=== PATIENT | male | born 1975 | race Two or more races ===

== ENCOUNTER 2023-06-17 07:51 | Outpatient (AMB) | payer OTHER, SELFPAY ==
[2023-06-17 08:10] VITALS: BMI 34.4
--- NOTE | 2023-06-17 08:10 | MHC.OFFVIS ---
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 The patient describes his pain as sharp in nature. Most of the pain is along the medial aspect of his knee. States that his symptoms have gotten worse over the last year in spite of continued non operative treatments. He has done physical therapy exercises which aggravated his pain. Has also tried Tylenol and anti-inflammatory medicines which gave him minimal relief. Patient states that his knee will give out several times per day. He has worn a brace which gives him only mild Allergies No Known Allergies Allergy (Verified 06/17/23 08:12) Medication List - Last Reconciled 06/17/23 by Claude Bell MD No Known Home Meds [facility] Social History (Updated 06/17/23 @ 08:16 by Stacy Stewart CMA) Patient Tobacco Use Status: Never used Tobacco Current occupational status: employed Current occupation: [employer] Physical Exam Vital Signs: BMI result Body Mass Index 34.4 Const Other: Well-nourished well-developed very friendly male awake alert and oriented x3 in no acute distress Extrem Other: Bilateral lower extremity examination shows good capillary refill, no skin lesions noted, normal sensation light touch Left knee examination shows a mild effusion, minimal crepitus with range of motion, tenderness along his medial joint line, positive Jefferson's test, no instability Results Reviewed Results Reviewed: MRI of the patient's left knee which he brings with him today on a disc shows a tear of the posterior horn of the medial meniscus as well as mild to moderate diffuse degenerative changes, no acute bony abnormalities Assessment & Plan Assessment & Plan (1) Left knee pain: Code(s): M25.562 - Pain in left knee Plan Mr. Vasquez presents with left knee pain and mechanical symptoms due to early degenerative joint disease as well as a tear of his medial meniscus. I had a lengthy discussion with the patient regarding the treatment options. The risks and benefits of left knee arthroscopic surgery were discussed at length with the patient. The patient does understand that he might not get 100% relief of his symptoms depending on the severity of his degenerative changes. Because of the large tear in the medial meniscus and his mechanical symptoms I do feel that he would benefit from arthroscopic surgery. At this point the patient's symptoms are tolerable to him. He will continue with his activity modifications. If his symptoms do worsen in the future we will further discuss the risks and benefits of arthroscopic surgery. That surgery would most likely involve left knee diagnostic arthroscopy with partial medial meniscectomy. The patient will follow-up on an as-needed basis. Feel free to call me at any time should questions regarding his orthopedic management arise. Thank you very much for asking me to see this very friendly gentleman. I spent 22 minutes in reviewing the patient's records and imaging studies, seeing the patient and documenting in the medical record. Orders: Orders XR knee LT 3V Today M25.562 - Pain in left knee Coding Level of Care Code New Pt Level 2 (72787) Diagnoses Left knee pain M25.562
== END 2023-06-17 08:28 | disposition home or self-care (01) ==
PROVIDERS: PCP Physician Assistant Medical; Visit Provider Orthopaedic Surgery
DX: M25.562 Pain in left knee (principal)
CPT/HCPCS: 99202

== ENCOUNTER 2023-06-17 09:32 | Outpatient (REF) | payer OTHER, SELFPAY ==
--- NOTE | ~2023-06-17 | XR_ITS ---
EXAMINATION: XR KNEE, LEFT CLINICAL INFORMATION: Pain in left knee COMPARISON: None available. TECHNIQUE: Four views of the left knee. FINDINGS: No fracture. Small joint effusion. There is mild narrowing of the medial joint compartment. Question of 3 mm loose body within the joint seen on the lateral view. XR/XR knee LT 3V IMPRESSION: 1. Mild osteoarthritis. 2. Question of 3 mm loose body within the joint seen on the lateral view.
== END 2023-06-17 09:33 | disposition home or self-care (01) ==
LOC: HO.HOSX 09:32
PROVIDERS: Visit Provider Orthopaedic Surgery
DX: M25.562 Pain in left knee (principal)
CPT/HCPCS: 73562; 99202

== ENCOUNTER 2023-09-02 08:38 | Outpatient (AMB) | payer OTHER, SELFPAY ==
--- NOTE | 2023-09-02 08:40 | A.OFFVIS_ITS ---
Vital Signs 09/02/23 08:42 Height 5 ft 10 in Intake Visit Reasons: New Prob - Right Knee Pain, Left knee pain Intake Note: George is a 48 year old male who presents with complaints of progressively worsening bilateral knee pains and giving way. The patient describes his pains as sharp and severe in nature. He has done physical therapy exercises which aggravated his pain. He states that both of his knees will give out several times per day. Has had injections in the past which gave him minimal relief. He has failed the last 6 weeks of conservative treatment. His symptoms have gotten worse over the last year in spite of continued non operative treatments. Has tried Tylenol and anti-inflammatory medicines which gave him minimal relief. The patient states that both of his knees will give out several times per day. Allergies No Known Allergies Allergy (Verified 09/02/23 08:47) Medication List - Last Reconciled 09/02/23 by Claude Bell MD No Known Home Meds [facility] Social History Patient Tobacco Use Status: Never used Tobacco Current occupational status: employed Current occupation: [employer] Physical Exam Const Other: Well-nourished well-developed very friendly male awake alert and oriented x3 in no acute distress Extrem Other: Bilateral lower extremity examination shows good capillary refill, no skin les ions noted, normal sensation light touch Right knee examination shows a minimal effusion, minimal crepitus with range of motion, tenderness along his medial joint line, positive Jefferson's test, no in stability Left knee examination shows a minimal effusion, minimal crepitus with range of motion, tenderness along his medial joint line, positive Jefferson's test, no instability Results Reviewed Results Reviewed: Standing full weight-bearing x-rays of the patient's left knee show mild diffuse joint space narrowing, no acute bony abnormalities MRI of the patient's left knee shows mild degenerative changes as well as a tear of the medial meniscus Assessment & Plan Assessment & Plan (1) Left knee pain: Code(s): M25.562 - Pain in left knee Category: Medical (2) Right knee pain: Code(s): M25.561 - Pain in right knee Category: Medical Plan Mr. Vasquez presents with bilateral knee pains and mechanical symptoms most likely due to tearing of his medial menisci. Thus, I will send the patient for an MRI of his right knee for further evaluation. Appears to be failing continued non operative treatments for his left knee. The risks and benefits of left knee arthroscopic surgery were discussed at length with the patient. The patient is interested in proceeding with surgery later this year. He will contact my office to pick a surgery date. I will see him back after his right knee MRI to discuss the findings and treatment options. Left knee surgery will most likely involve left knee arthroscopic partial medial meniscectomy. Feel free to call me at any time should questions regarding his orthopedic management arise. I spent 20 minutes in reviewing the patient's records and imaging studies, seeing the patient and documenting in the medical record. Orders: Orders MR knee RT wo con Today M25.561 - Pain in right knee Coding Level of Care Code Est Pt Level 3 (02332) Diagnoses Left knee pain M25.562 Right knee pain M25.561
== END 2023-09-02 09:02 | disposition home or self-care (01) ==
PROVIDERS: PCP Physician Assistant Medical; Visit Provider Orthopaedic Surgery
DX: M25.562 Pain in left knee (principal); M25.561 Pain in right knee
CPT/HCPCS: 99213

== ENCOUNTER → 2023-09-02 08:38 | Outpatient (BNVA) | payer OTHER, SELFPAY | PROVIDERS: PCP Physician Assistant Medical; Visit Provider Orthopaedic Surgery | DX: M25.561 Pain in right knee (principal); M25.562 Pain in left knee | CPT/HCPCS: 99212 ==

== ENCOUNTER 2023-10-08 09:24 | Outpatient (REF) | payer OTHER, SELFPAY ==
--- NOTE | ~2023-10-08 | MR_ITS ---
EXAMINATION: MR KNEE WITHOUT CONTRAST, RIGHT CLINICAL INFORMATION: Left knee pain. COMPARISON: Radiographs 06/17/2023. TECHNIQUE: MRI of the knee without contrast was performed using routine sequences on a high-field scanner. FINDINGS: MENISCI: Medial Meniscus: Complex, near complete tear at the root of the posterior horn. The meniscal body is slightly extruded. Intrasubstance degenerative signal at the junction of the body and posterior horn. Possible small longitudinal tear at the root of the anterior horn with a 1.2 cm lobulated and septated parameniscal cysts or small ganglion. Lateral Meniscus: Intact LIGAMENTS: Cruciate: Intact Collateral: Intact EXTENSOR MECHANISM: Intact ARTICULAR CARTILAGE/BONE: Patellofemoral Compartment: Cartilage thinning and surface irregularity with subchondral edema of the central patella superiorly. Medial Compartment: Mild cartilage thinning and surface irregularity throughout the weightbearing aspect with peripheral subchondral marrow edema of the tibia medially. Lateral Compartment: Normal JOINT FLUID AND BURSAE: Moderate joint effusion with mild synovitis. Fluid and synovitis extends along the popliteus tendon sheath. MR/MR knee RT wo con IMPRESSION: 1. Complex, near complete tear at the root of the posterior horn of the medial meniscus with mild extrusion of the meniscal body. 2. Possible small longitudinal tear at the root of the anterior horn with a 1.2 cm lobulated and septated parameniscal cyst or ganglion. 3. Mild patellofemoral/medial compartment osteoarthritis. Moderate joint effusion.
== END 2023-10-08 09:25 | disposition home or self-care (01) ==
LOC: HO.MRI 09:24
PROVIDERS: PCP Physician Assistant Medical; Visit Provider Orthopaedic Surgery
DX: M25.561 Pain in right knee (principal)
CPT/HCPCS: 73721

== ENCOUNTER 2023-10-12 08:04 | Day surgery (SDC) | payer OTHER, SELFPAY ==
[2023-10-07 16:18] VITALS: BMI 34.4
[2023-10-12 08:49] VITALS: BP 140/88; PULSE 64; RESP 16; TEMP 36.9; O2SAT 98
[2023-10-12] MEDS: Lactated Ringers 1,000 ML 100 ML IVCONT (08:50)
--- NOTE | 2023-10-12 09:35 | P.CONAN_ITS ---
HPI - Anesthesia Eval Consult details Narrative: for knee arthroscopy PMFSH Active Problems Active Problems: All Active Problems Right knee pain (Acute) Left knee pain (Acute) Past Medical History Medical History No pertinent past medical history Family History Family history of problems with anesthesia: No Surgical History Surgical History No pertinent past surgical history History of Problems with Anesthesia: No Social History Social History Household Members: Family Housing: House Are you a primary long term acute care registered nurse to a significant other at home: No Do you presently have visiting nurse or other home services: No Patient Tobacco Use Status: Never used Tobacco Use of substances other than those prescribed or required for medical reasons: No Have you been hit, kicked, punched, or otherwise hurt by someone within the past year? If so, by whom?: No Are you DNR?: No Advance Directives: No Advance Directives Information Provided: Yes Advance Directives on File: No Recently lost weight without trying: No Nutrition Risks: No Nutritional Risk Poor oral hygiene: No Current occupational status: employed Current occupation: [employer] Allergies Allergy/AdvReac Type Severity Reaction Status Date / Time No Known Allergies Allergy Verified 10/12/23 08:35 Active Medications: Current Medications Lactated Ringer's (Lr) 1,000 mls @ 100 mls/hr IVCONT .Q10H MARIANNA Last Admin: 10/12/23 08:50 Dose: 100 mls/hr Home Medications ?Medication ?Instructions ?Recorded ?Confirmed ?Last Taken ?Type No Known Home Meds 06/17/23 10/07/23 Unknown History Exam Height,Weight and Vital Signs: Height 5 ft 10 in Weight 108.862 kg Last Vital Signs Temp 98.4 F 10/12/23 08:49 Pulse 64 10/12/23 08:49 Resp 16 10/12/23 08:49 BP 140/88 H 10/12/23 08:49 Pulse Ox 98 10/12/23 08:49 O2 Del Method Room Air 10/12/23 08:49 Airway Mallampati Class: II TM Dist: >3cm Neck ROM: Full Heart: rrr Lungs: cta Assessment and Plan Assessment Anesthesia Assessment: Anesthesia Plan Discussed and Chart Reviewed Final Anesthetic Review Family History of Problems with Anesthesia: No History of Problems with Anesthesia: No NPO: Yes ASA Class: II (obesity ) Final Preanesthetic Review: No Changes in Pt Med Stat, Meds/Allgs Chart Reviewed, Consent Obtained/Reviewed and Anes Risks/Benef Reviewed Patient Risk: Intermediate Procedure Risk: Low Anesthetic Plan Anesthetic Plan: GA Disposition: Standard PACU
[2023-10-12 10:44] VITALS: BMI 34.6
--- NOTE | 2023-10-12 11:35 | PC.NURSE ---
24hr update documented on paper
[2023-10-12 12:44] VITALS: BP 126/81; PULSE 58; RESP 16; TEMP 36.1; O2SAT 100
[2023-10-12 12:49] VITALS: BP 121/79; PULSE 62; RESP 18; O2SAT 99
[2023-10-12 12:54] VITALS: BP 119/82; PULSE 62; RESP 18; O2SAT 99
--- NOTE | 2023-10-12 12:58 | PM.OP ---
Brief Operative Note Date of Service: 10/12/23 Pre-op diagnosis: Left knee medial meniscus tear, left knee degenerative joint disease Post-op diagnosis: same Procedure: Left knee diagnostic arthroscopy with left knee arthroscopic partial medial meniscectomy; left knee arthroscopic chondroplasty of the undersurface of the patella, trochlear groove, and the medial femoral condyle Implants: None Surgeon: Claude Bell MD Anesthesia: GLMA Was an Subcontracts Manager used for this Procedure?: No Estimated blood loss (mL): 10 Pathology: none sent Condition: stable Disposition: PACU
[2023-10-12 12:59] VITALS: BP 121/74; PULSE 65; RESP 18; O2SAT 97
--- NOTE | 2023-10-12 13:00 | W.PM.OPN ---
Operative Note Operative Note Date of Service: 10/12/23 Narrative: After the patient was identified as George Vasquez and his left knee was initialed by myself they were brought to the operating room where general anesthesia was induced by the anesthesiologist in routine fashion. The patient was given 2 g of IV Ancef preoperatively for infection prophylaxis. The patient's left lower extremity was prepped and draped in sterile fashion. A formal time-out was completed. Marcaine was injected into the planned incision sites as well as the patient's left knee joint. A #11 scalpel blade was used to make an anterolateral portal 1 cm proximal to the joint line and 1 cm lateral to the patellar tendon. Blunt trocar technique was used to enter the suprapatellar pouch with the knee in extension. Diagnostic arthroscopy showed multiple bands of thickened plica which would be excised at the end of the procedure. There were no loose bodies or abnormalities found in either the medial or lateral gutters. The articular surface of the patella showed diffuse grades 1 and 2 degenerative changes. The trochlear groove articular surface showed diffuse grades 1 and 2 degenerative changes. The patient's knee was flexed to 45 degrees and a valgus force was placed upon it. The medial compartment was entered. An anteromedial portal was made 1 cm proximal to the joint line and 1 cm medial to the patellar tendon. Probing of the medial meniscus showed a radial tear of the posterior horn. A partial medial meniscectomy was performed using the arthroscopic shaver. Following the partial meniscectomy the remainder of the meniscus tissue was stable. There were diffuse grades 2 and 3 degenerative changes of the medial femoral condyle as well as grades 2 and 3 degenerative changes of the medial tibial plateau. The articular surface of the medial femoral condyle was then made smooth using the arthroscopic shaver. The articular surface of the medial tibial plateau was already smooth so no chondroplasty was indicated. The patient's knee was placed into a neutral position. There was no injury to the anterior cruciate ligament. The patient's knee was then placed in the figure of 4 position and the lateral compartment was entered. There was no evidence of lateral meniscus tearing. There were minimal degenerative changes of the lateral femoral condyle and lateral tibial plateau. The patient's knee was once again brought into extension and the suprapatellar pouch was entered. The arthroscopic shaver and the ArthroCare Wand were used to excise the thickened bands of plica. The undersurface of the patella and the trochlear groove articular surface were made smooth using the arthroscopic shaver. The knee joint was irrigated and then drained. All arthroscopic instruments were removed. The 2 portals were closed with 3-0 nylon interrupted suture. The knee joint was injected with Marcaine. Dry sterile dressing and Fred bandages were placed over the patient's knee. The patient was awoken and extubated in the operating room. The patient was transferred to the recovery room in stable condition.
[2023-10-12 13:14] VITALS: BP 128/74; PULSE 63; RESP 18; TEMP 36.4; O2SAT 96
== END 2023-10-12 13:55 | disposition home or self-care (01) ==
PROVIDERS: PCP Physician Assistant Medical; Visit Provider Orthopaedic Surgery
PROC: (CPT 29870; principal; 2023-10-12 10:30)
DX: S83.242A Other tear of medial meniscus, current injury, left knee, initial encounter (principal); M17.12 Unilateral primary osteoarthritis, left knee; M67.52 Plica syndrome, left knee; X58.XXXA Exposure to other specified factors, initial encounter; Y93.9 Activity, unspecified; Y92.9 Unspecified place or not applicable; Y99.8 Other external cause status
CPT/HCPCS: 29881; J0131; J0171; J0690; J1100; J1885; J2405; J2704; J2795; J3010

== ENCOUNTER → 2023-10-12 08:04 | Outpatient (BNV) | payer OTHER, SELFPAY | PROVIDERS: PCP Physician Assistant Medical; Visit Provider Orthopaedic Surgery | DX: S83.242A Other tear of medial meniscus, current injury, left knee, initial encounter (principal) | CPT/HCPCS: 29881 ==

== ENCOUNTER 2023-10-27 10:35 | Outpatient (AMB) | payer OTHER, SELFPAY ==
--- NOTE | 2023-10-27 10:38 | MHC.OFFVIS ---
Intake Visit Reasons: PO LT knee 10/12/23 Intake Note: George is a 48 year old male who presents today for a post operative visit s/p left knee on 10/12/23 . He reports mild intermittent discomfort in his left knee. He denies any fevers or chills. He continues with his range of motion exercises. He is no longer taking narcotics for his discomfort. l Allergies No Known Allergies Allergy (Verified 10/27/23 10:41) [facility] Medical History No pertinent past medical history Surgical History No pertinent past surgical history Social History Household Members: Family Housing: House Are you a primary care advocate to a significant other at home: No Do you presently have visiting nurse or other home services: No Patient Tobacco Use Status: Never used Tobacco Current occupational status: employed Current occupation: [employer] Physical Exam Extrem Other: Left knee examination shows that the surgical incisions are healing well, minimal discomfort with range of motion, no crepitus with range of motion Assessment & Plan Assessment & Plan (1) Left knee pain: Code(s): M25.562 - Pain in left knee Category: Medical Plan Mr. Vasquez is doing well after undergoing left knee arthroscopic surgery on 10/12/2023. His sutures were removed and Steri-Strips placed over his incisions. He will gradually progress to activities as tolerated. He will contact me prior to his follow-up appointment in 2 months should any questions or concerns arise. Feel free to call me at any time should questions regarding his orthopedic management arise. Coding Level of Care Code Global (29052) Diagnoses Left knee pain M25.562
== END 2023-10-27 10:57 | disposition home or self-care (01) ==
PROVIDERS: PCP Physician Assistant Medical; Visit Provider Orthopaedic Surgery
DX: M25.562 Pain in left knee (principal)
CPT/HCPCS: 99024

== ENCOUNTER → 2023-10-27 10:35 | Outpatient (BNVA) | payer OTHER, SELFPAY | PROVIDERS: PCP Physician Assistant Medical; Visit Provider Orthopaedic Surgery | DX: M25.562 Pain in left knee (principal) | CPT/HCPCS: 99212 ==

== ENCOUNTER 2024-01-07 10:25 | Outpatient (AMB) | payer OTHER, SELFPAY ==
--- NOTE | 2024-01-07 10:27 | A.OFFVIS_ITS ---
Intake Visit Reasons: Right knee pain and giving way Intake Note: George is a 48 year old male who presents with complaints of progressively worsening right knee pain and giving way. The patient did undergo left knee arthroscopic surgery on 10/12/2023. Denies any pain in his left knee. He describes his right knee pain as sharp and severe in nature. The patient did injure his right knee approximately 1 year ago. He twisted his knee and had acute onset of pain. Since that time his symptoms have gotten worse in spite of continued non operative treatments. He has done physical therapy which aggravated his pain and mechanical symptoms. He states that his right knee will give out several times per day. Most of the pain is along the medial aspect of his knee. He has had multiple injections in the past. The most recent injection gave him minimal relief. He has also tried Tylenol and anti-inflammat ory medicines which gave him only mild relief. Allergies No Known Allergies Allergy (Verified 01/07/24 10:31) Medication List - Last Reconciled 01/07/24 by Claude Bell MD [facility] Medical History No pertinent past medical history Surgical History No pertinent past surgical history Social History Household Members: Family Housing: House Are you a primary healthcare manager to a significant other at home: No Do you presently have visiting nurse or other home services: No Patient Tobacco Use Status: Never used Tobacco Current occupational status: employed Current occupation: [employer] Physical Exam Const Other: Well-nourished well-developed very friendly male awake alert and oriented x3 in no acute distress Extrem Other: Bilateral lower extremity examination shows good capillary refill, no skin lesions noted, normal sensation light touch Right knee examination shows a minimal effusion, minimal crepitus with range of motion, tenderness along his medial joint line, positive Jefferson's test, no instability Results Reviewed Results Reviewed: Standing full weight-bearing x-rays of the patient's right knee taken previously show mild diffuse joint space narrowing, no acute bony abnormalities Assessment & Plan Assessment & Plan (1) Tear of medial meniscus of right knee: Code(s): S83.241A - Other tear of medial meniscus, current injury, right knee, initial encounter Category: Medical Plan Mr. Vasquez presents with progressively worsening right knee pain and mechanical symptoms due to a medial meniscus tear. I had a lengthy discussion with the patient regarding the treatment options. At this point he has failed continued non operative treatments. The risks and benefits of right knee arthroscopic surgery were discussed at length with the patient. The patient wishes to proceed with surgery. Surgery will most likely involve right knee arthroscopic partial medial meniscectomy. The patient will contact my office to pick a surgery date. He will follow-up as instructed. Feel free to call me at any time should questions regarding his orthopedic management arise. I spent 22 minutes in reviewing the patient's records and imaging studies, seeing the patient and documenting in the medical record. Coding Level of Care Code Est Pt Level 3 (85775) Complex EM visit Add On G2211 Diagnoses Tear of medial meniscus of right knee S83.241A
== END 2024-01-07 10:44 | disposition home or self-care (01) ==
PROVIDERS: PCP Physician Assistant Medical; Visit Provider Orthopaedic Surgery
DX: S83.241A Other tear of medial meniscus, current injury, right knee, initial encounter (principal)
CPT/HCPCS: 99213; G2211

== ENCOUNTER → 2024-01-07 10:25 | Outpatient (BNVA) | payer OTHER, SELFPAY | PROVIDERS: PCP Physician Assistant Medical; Visit Provider Orthopaedic Surgery | DX: S83.241A Other tear of medial meniscus, current injury, right knee, initial encounter (principal); X58.XXXA Exposure to other specified factors, initial encounter; Y93.9 Activity, unspecified; Y92.9 Unspecified place or not applicable; Y99.9 Unspecified external cause status | CPT/HCPCS: 99212 ==

== ENCOUNTER 2024-03-11 07:02 | Day surgery (SDC) | payer OTHER, SELFPAY ==
[2024-03-08 15:11] VITALS: BMI 34.6
--- NOTE | 2024-03-09 12:30 | HO.ANESPROP2 ---
Documented by User: Dalia Fam NP 03/09/24 12:30 HPI - Anesthesia Eval Consult details Narrative: 49yo M for Right Knee Arthroscopy,with partial medial meniscectomy PMFSH Active Problems Active Problems: All Active Problems Tear of medial meniscus of right knee (Acute) Right knee pain (Acute) Left knee pain (Acute) Past Medical History Medical History No pertinent past medical history Family History Family history of problems with anesthesia: No Surgical History Surgical History Hx of arthroscopy of left knee History of Problems with Anesthesia: No Social History Social History Household Members: Family Housing: House Are you a primary urgent care nurse practitioner to a significant other at home: No Do you presently have visiting nurse or other home services: No Patient Tobacco Use Status: Never used Tobacco Have you been hit, kicked, punched, or otherwise hurt by someone within the past year? If so, by whom?: No Are you DNR?: No Advance Directives: No Advance Directives Information Provided: Yes Recently lost weight without trying: No Nutrition Risks: No Nutritional Risk Current occupational status: employed Current occupation: [employer] Allergies Allergy/AdvReac Type Severity Reaction Status Date / Time No Known Allergies Allergy Verified 03/11/24 07:13 Active Medications: Current Medications Cefazolin Sodium/Dextrose (Ancef) 2 gm in 50 mls @ 100 mls/hr IV PREOP ONE Stop: 03/11/24 06:04 Home Medications ?Medication ?Instructions ?Recorded ?Confirmed ?Last Taken ?Type No Known Home Meds 03/08/24 03/08/24 Unknown History Exam Height,Weight and Vital Signs: Height 5 ft 10 in Weight 109.316 kg Assessment and Plan Assessment Anesthesia Assessment: Chart Reviewed Final Anesthetic Review Family History of Problems with Anesthesia: No History of Problems with Anesthesia: No Documented by User: Becky Angel MD 03/11/24 08:33 PMFSH Past Medical History Medical History No pertinent past medical history Surgical History Surgical History Hx of arthroscopy of left knee Social History Social History Household Members: Family Housing: House Are you a primary urgent care nurse practitioner to a significant other at home: No Do you presently have visiting nurse or other home services: No Patient Tobacco Use Status: Never used Tobacco Have you been hit, kicked, punched, or otherwise hurt by someone within the past year? If so, by whom?: No Are you DNR?: No Advance Directives: No Advance Directives Information Provided: Yes Recently lost weight without trying: No Nutrition Risks: No Nutritional Risk Current occupational status: employed Current occupation: [employer] Allergies Allergy/AdvReac Type Severity Reaction Status Date / Time No Known Allergies Allergy Verified 03/11/24 07:13 Home Medications ?Medication ?Instructions ?Recorded ?Confirmed ?Last Taken ?Type No Known Home Meds 03/08/24 03/08/24 Unknown History Exam Airway Mallampati Class: III (small mouth opening) TM Dist: >3cm Neck ROM: Full Heart: rrr Lungs: cta Assessment and Plan Assessment Anesthesia Assessment: Anesthesia Plan Discussed Final Anesthetic Review NPO: Yes ASA Class: I Final Preanesthetic Review: No Changes in Pt Med Stat, Meds/Allgs Chart Reviewed and Consent Obtained/Reviewed Patient Risk: Low Procedure Risk: Low Anesthetic Plan Anesthetic Plan: GA Disposition: Standard PACU
[2024-03-11] VITALS (9 sets, daily range): BP systolic 108–136; BP diastolic 64–80; PULSE 59–93; RESP 18–20; TEMP 36.3–36.9; O2SAT 97–98; BMI 34.7
[2024-03-11] MEDS: Lactated Ringers 1,000 ML 100 ML IVCONT (07:17)
--- NOTE | 2024-03-11 10:13 | P.BOP_ITS ---
Brief Operative Note Date of Service: 03/11/24 Pre-op diagnosis: Right knee medial meniscus tear, right knee degenerative joint disease Post-op diagnosis: same Procedure: Right knee diagnostic arthroscopy with right knee arthroscopic partial medial meniscectomy, right knee arthroscopic chondroplasty of the undersurface of the patella as well as the medial femoral condyle Implants: none Surgeon: Claude Bell MD Anesthesia: GLMA Was an Regional Psychiatric Director used for this Procedure?: No Estimated blood loss (mL): 10 Pathology: none sent Condition: stable Disposition: PACU
--- NOTE | 2024-03-11 10:16 | P.OP_ITS ---
Operative Note Operative Note Date of Service: 03/11/24 Narrative: After the patient was identified as George Vasquez and his right knee was initialed by myself they were brought to the operating room where general anesthesia was induced by the anesthesiologist in routine fashion. The patient was given 2 g of IV Ancef for infection prophylaxis. A formal time-out was completed. The patient's right lower extremity was prepped and draped in sterile fashion. Marcaine with epinephrine was injected into the planned incision sites as well as their right knee joint. A # 11 scalpel blade was used to make an anterolateral portal 1 cm proximal to the joint line and 1 cm lateral to the patellar tendon. Blunt trocar technique was used into the suprapatellar pouch with the knee in extension. Diagnostic arthroscopy showed multiple bands of thickened plica which would be excised at the end of the procedure. There were no loose bodies or abnormalities found in either the medial or lateral gutters. There were diffuse grades 1 and 2 degenerative changes of the undersurface of the patella as well as grade 1 degenerative changes of the trochlear groove. The patient's knee was flexed to 45 degrees and a valgus force was placed upon it. The medial compartment was entered. An anteromedial portal was made 1 cm proximal to the joint line and 1 cm medial to the patellar tendon. Probing of the medial meniscus showed a radial tear of the anterior horn. A partial medial meniscectomy was performed using the arthroscopic shaver. Following the partial meniscectomy the remainder of the meniscus tissue was stable. There were diffuse grades 1 and 2 degenerative changes of the media l femoral condyle as well as diffuse grade 1 degenerative changes of the medial tibial plateau. The articular surface of the medial femoral condyle was made smooth using the arthroscopic shaver. The articular surface of the medial tibial plateau was already smooth so no chondroplasty was indicated. The patient's knee was then placed into a neutral position. There was no injury to the anterior cruciate ligament. The patient's knee was then placed into the figure of 4 position and the lateral compartment was entered. There were minimal degenerative changes of the lateral femoral condyle and lateral tibial plateau. There was no evidence of lateral meniscus tearing. The patient's knee was once again brought into extension and the suprapatellar pouch was entered. The arthroscopic shaver and the ArthroCare Wand were used to excise the thickened bands of plica. The undersurface of the patella was then made smooth using the arthroscopic shaver. The articular surface of the trochlear groove was already smooth so no chondroplasty was indicated. The knee joint was irrigated and then drained. All arthroscopic instruments were removed. The 2 portals were closed with 3-0 nylon interrupted suture. The knee joint was injected with Marcaine. Dry sterile dressing and Fred bandages were placed over the patient's knee. The patient was awoken and extubated in the operating room. They were transferred to the recovery room in stable condition.
[2024-03-11] MEDS: cefTRIAXone sodium 1 GM VIAL IVPUSH (10:26)
== END 2024-03-11 11:30 | disposition home or self-care (01) ==
PROVIDERS: PCP Physician Assistant Medical; Visit Provider Orthopaedic Surgery
PROC: (CPT 29870; principal; 2024-03-11 09:00)
DX: S83.241A Other tear of medial meniscus, current injury, right knee, initial encounter (principal); X50.1XXA Overexertion from prolonged static or awkward postures, initial encounter; Y93.9 Activity, unspecified; Y92.9 Unspecified place or not applicable; Y99.9 Unspecified external cause status; M23.311 Other meniscus derangements, anterior horn of medial meniscus, right knee; M17.11 Unilateral primary osteoarthritis, right knee; M67.51 Plica syndrome, right knee; Z98.890 Other specified postprocedural states
CPT/HCPCS: 29881; J0131; J0171; J0690; J0696; J1100; J1885; J2003; J2250; J2405; J2704; J2795; J3010

== ENCOUNTER → 2024-03-11 07:02 | Outpatient (BNV) | payer OTHER, SELFPAY | PROVIDERS: PCP Physician Assistant Medical; Visit Provider Orthopaedic Surgery | DX: S83.241A Other tear of medial meniscus, current injury, right knee, initial encounter (principal) | CPT/HCPCS: 29881 ==

== ENCOUNTER 2024-03-24 11:52 | Outpatient (AMB) | payer OTHER, SELFPAY ==
[2024-03-24 11:54] VITALS: BMI 34.7
--- NOTE | 2024-03-24 11:54 | MHC.OFFVIS ---
Vital Signs 03/24/24 11:54 Height 5 ft 10 in Weight 242 lb BMI 34.7 Intake Visit Reasons: PO RT knee 03/11/24 Intake Note: George is a 49 year old male who presents for their first post-operative visit after undergoing a right knee arthroscopy on 03/11/24. He reports mild intermittent discomfort in his right knee. He denies any fevers or chills. He continues with his home stretching program. Allergies No Known Allergies Allergy (Verified 03/24/24 11:55) Medication List - Last Reviewed 03/24/24 by HAYDEN Maddox No Known Home Meds PFSH Medical History No pertinent past medical history Surgical History Hx of arthroscopy of left knee Social History Household Members: Family Housing: House Are you a primary manager progressive care to a significant other at home: No Do you presently have visiting nurse or other home services: No Patient Tobacco Use Status: Never used Tobacco Current occupational status: employed Current occupation: [employer] Physical Exam Vital Signs: BMI result Body Mass Index 34.7 Extrem Other: Right knee examination shows that the surgical incisions are healing well, no erythema, minimal discomfort with range of motion, no instability Assessment & Plan Assessment & Plan (1) Right knee pain: Code(s): M25.561 - Pain in right knee Category: Medical Plan Mr. Vasquez is doing well after undergoing right knee arthroscopic surgery on 03/11/2024. His sutures were removed and Steri-Strips placed over his incisions. He will continue with his home exercise program. He will contact me prior to his follow-up appointment in 2 months should any questions or concerns arise. Feel free to call me at any time should questions regarding his orthopedic management arise. Coding Level of Care Code Global (59997) Diagnoses Right knee pain M25.561
== END 2024-03-24 12:07 | disposition home or self-care (01) ==
PROVIDERS: PCP Physician Assistant Medical; Visit Provider Orthopaedic Surgery
DX: M25.561 Pain in right knee (principal)
CPT/HCPCS: 99024

== ENCOUNTER → 2024-03-24 11:52 | Outpatient (BNVA) | payer OTHER, SELFPAY | PROVIDERS: PCP Physician Assistant Medical; Visit Provider Orthopaedic Surgery | DX: M25.561 Pain in right knee (principal) | CPT/HCPCS: 99212 ==

== ENCOUNTER 2024-07-26 09:44 | Outpatient (AMB) | payer OTHER, SELFPAY ==
--- NOTE | 2024-07-26 09:45 | A.OFFVIS_ITS ---
Vital Signs 07/26/24 09:50 Height 5 ft 10 in Weight 242 lb BMI 34.7 Handedness Right Intake Visit Reasons: Right shoulder pain and weakness Intake Note: George is a 49 year old right hand dominant male who presents with complaints of progressively worsening right shoulder pain and weakness. The patient states that his symptoms have gotten worse over the last 6 months. He has failed the last 6 weeks of conservative treatment which has included Tylenol, anti- inflammatory medicines, physical therapy exercises and a home exercise program. He has had cortisone injections in the past which gave him minimal relief. He reports weakness when lifting his right hand above shoulder height. He denies any numbness or tingling in either of his upper extremities. Does do quite a bit of lifting at work and at home. Allergies No Known Allergies Allergy (Verified 07/26/24 09:49) Medication List - Last Reconciled 07/26/24 by Claude Bell MD No Known Home Meds [facility] Medical History (Updated 07/26/24 @ 09:59 by Claude Bell MD) No pertinent past medical history Surgical History Hx of arthroscopy of left knee Social History (Updated 07/26/24 @ 09:50 by HAYDEN Maddxo) Household Members: Family Housing: House Are you a primary care consultant to a significant other at home: No Do you presently have visiting nurse or other home services: No Patient Tobacco Use Status: Never used Tobacco Current occupational status: employed Current occupation: [employer], rt handed Physical Exam Vital Signs: BMI result Body Mass Index 34.7 Const Other: Well-nourished well-developed very friendly male awake alert and oriented x3 in no acute distress Extrem Other: Bilateral upper extremity examination shows good capillary refill, no skin lesions noted, normal sensation light touch Right shoulder examination shows slightly decreased range of motion when compared to his left shoulder, 4+ out of 5 strength with supraspinatus testing, positive impingement signs, tenderness over his acromioclavicular joint, no instability Assessment & Plan Assessment & Plan (1) Rotator cuff insufficiency of right shoulder: Code(s): M25.311 - Other instability, right shoulder Category: Medical Plan Mr. Vasquez presents with right shoulder pain and weakness due to impingement syndrome and possible rotator cuff tearing. Thus, I will send the patient for an MRI of his right shoulder for further evaluation. I will see him back once the MRI is completed to discuss the findings and treatment options. Feel free to call me at any time should questions regarding his orthopedic management arise. I spent 20 minutes in reviewing the patient's records and imaging studies, seeing the patient and documenting in the medical record. Orders: Orders MR shoulder RT wo con Today M25.311 - Other instability, right shoulder Coding Level of Care Code Est Pt Level 3 (50978) Complex EM visit Add On G2211 Diagnoses Rotator cuff insufficiency of right shoulder M25.311
[2024-07-26 09:50] VITALS: BMI 34.7
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
== END 2024-07-26 09:55 | disposition home or self-care (01) ==
LOC: HO.HOS 09:44
PROVIDERS: PCP Physician Assistant Medical; Visit Provider Orthopaedic Surgery
DX: M25.311 Other instability, right shoulder (principal)
CPT/HCPCS: 99213; G2211

== ENCOUNTER → 2024-07-26 09:44 | Outpatient (BNVA) | payer OTHER, SELFPAY | PROVIDERS: PCP Physician Assistant Medical; Visit Provider Orthopaedic Surgery | DX: M25.311 Other instability, right shoulder (principal) | CPT/HCPCS: 99212 ==

== ENCOUNTER 2024-08-09 17:52 | Outpatient (REF) | payer OTHER, SELFPAY ==
--- NOTE | ~2024-08-09 | MR_ITS ---
EXAMINATION: MR SHOULDER, RIGHT CLINICAL INFORMATION: Other instability right shoulder; right shoulder pain. No history of injury. 49-year-old male. COMPARISON: None TECHNIQUE: Multiplanar multisequence MR imaging of the right shoulder was done without IV contrast. Examination performed on a 1.5 Liza Siemens unit utilizing standard sequences. FINDINGS: Rotator Cuff and Biceps Tendon: Supraspinatus: Appears intact and normal in signal. There is no discrete tear. Normal muscle belly. Infraspinatus: Appears intact and normal in signal. No discrete tear. Normal muscle belly. Subscapularis: Appears intact and normal in signal. No discrete tear. Normal muscle belly. Teres Minor: Appears intact and normal in signal. Normal muscle belly. Biceps Long Head: Normally located within the bicipital groove. The tendon has normal morphology. There is mildly increased fluid around the tendon sheath consistent with mild tenosynovitis. The tendon within the rotator interval has a normal signal and morphology. The anchor appears intact. AC Joint and Acromiohumeral Arch: Moderate to severe hypertrophic arthropathy of the AC joint with periarticular edema, joint capsular distention, and prominent superior surface and undersurface spurs. There is mild stenosis of the supraspinatus outlet, best seen (series 10, image 14). There is a type I acromion. No undersurface spurring of the acromion. Glenohumeral Joint and Labrum: There is linear signal undermining the posterior and superior labrum, suspicious for labral tears. The anterior labrum appears intact. The inferior labrum appears grossly intact. There is normal joint fluid in the glenohumeral joint. There is normal alignment. There are no full-thickness cartilaginous abnormalities or defects. There is no subchondral bone plate edema identified. No significant degenerative arthrosis noted. Osseous Structures: There is mild edema in the greater tuberosity at the insertion of the anterior supraspinatus tendon, likely stress response. (Series 8, image 14). There is periarticular edema of the AC joint, degenerative. There is no additional region of edema or abnormal infiltrating bone marrow signal. Spino-glenoid Notch: Normal. Quadrilateral Space: Normal. Other: There is moderate edema and bilateral fluid signal within the subacromial/subdeltoid bursa, consistent with bursitis. The glenohumeral ligaments appear intact without thickening. MR/MR shoulder RT wo con IMPRESSION: 1. No rotator cuff tear or pathology identified. There is mild to moderate supraspinatus outlet stenosis from undersurface spurring of the AC joint. 2. There are findings suspicious for posterior and superior labral tears. 3. Moderate to severe hypertrophic arthropathy of the AC joint with both superior and undersurface spurring, and periarticular edema. 4. There is focal bone marrow edema at the anterior footplate insertion of the supraspinatus tendon, likely stress response. 5. There is moderate subacromial/subdeltoid bursitis. 6. There is mild to synovitis of the long head of the biceps tendon. Electronically signed by: Seth Lo MD 08/10/2024 08:24 AM EDT
--- OUTSIDE RECORDS SUMMARY | 2024-08-09 17:55 | XMS_ITS | Clinical Summary ---
Author Organization [facility] Address [address] [place] [address] Phone Care Team Providers Care Perioperative Manager Name Role Phone Belinda Ochoa Primary Care Provider Allergies No known active allergies Medications polyethylene [...] Description 07/01/2024 12:05 PM EDT Anesthesia Event [facility] Endoscopy [address] [place] [address] Kayla Bedoya MD 07/01/2024 10:07 AM EDT - 07/01/2024 11:59 PM EDT Hospital Encounter [facility] Endoscopy [address] [place] [address] Zoraida William MD Dusza, Sara, [...] Months Results * COLONOSCOPY Anesthesia - MAC; [facility] ENDOSCOPY (07/01/2024 12:25 PM EDT) Anatomical Region [...] for surveillance. Narrative 07/01/2024 12:26 PM EDT [facility] GI Patient Name: George Vasquez Procedure Date: [...] verified by the physician, the nurse, the pathology technologist ? and the hvac operations technician in the pre-procedure area in the [...] Procedure Code(s): ? --- Professional --- ? 80259, Colonoscopy, flexible; with removal of ? tumor(s), polyp(s), or other lesion(s) by snare ? technique Diagnosis Code(s): ? --- Professional --- ? D12.4, Benign neoplasm of descending colon ? D12.0, Benign neoplasm of cecum CPT copyright 2021 [employer]. All rights reserved. The codes documented in this report are preliminary and upon hims coder review may be revised to meet current compliance requirements. Zoraida William MD 07/01/2024 12:26:26 PM This report has been signed electronically.Zoraida William MD Number of Addenda: 0 Note Initiated On: 07/01/2024 12:01 PM Scope Withdrawal Time: 0 hours 6 minutes 59 seconds Scope In: 12:11:44 PM Scope Out: 12:24:00 PM ? Endoscopy Department at [facility] - [address] [place] [address], ? [place] [address] Procedure Note Zoraida William MD - 07/01/2024 [facility] GI Patient Name: George Vasquez Procedure Date: [...] the physician, the nurse, theanesthetist and the hvac operations technician in the pre-procedure area in the [...] retroflexion views. Procedure Code(s): --- Professional --- 85841, Colonoscopy, flexible; with removal of tumor(s), polyp(s), or other lesion(s) by snare technique Diagnosis Code(s): --- Professional --- D12.4, Benign neoplasm of descending colon D12.0, Benign neoplasm of cecum CPT copyright 2020 [employer]. All rights reserved. The codes documented in this report are preliminary and upon hims coder reviewmay be revised to meet current compliance requirements. Zoraida William MD 07/01/2024 12:26:26 PM This report has been signed electronically.Zoraida William MD Number of Addenda: 0 Note Initiated On: 07/01/2024 12:01 PM Scope Withdrawal Time: 0 hours 6 minutes 59 seconds Scope In: 12:11:44 PM Scope Out: 12:24:00 PM Endoscopy Department at [facility] - [address] [place] [phone] IMPRESSION: - Three 2 to 4 mm [...] lesion without dysplasia 07/04/2024 10:46 AM EDT [facility] Gross Description A. Large Intestine, Left/Descendi [...] one slide. DESHAWN 07/04/2024 10:46 AM EDT [facility] Disclaimer Unless otherwise specified, all tissue is 10% NB formalin fixed and paraffin embedded. 07/04/2024 10:46 AM EDT [facility] Tissue Descending colon structure / Unknown 07/01/2024 12:16 PM EDT 07/01/2024 2:55 PM EDT Tissue specimen (specimen) Cecum structure / Unknown 07/01/2024 12:19 PM EDT 07/01/2024 2:55 PM EDT us Zoraida William MD LAB PATHOLOGY ORDERABLES Fi nal Result [facility] [address] [place] [address], from Last 3 Months Insurance [facility] [address] Care Teams Perioperative Manager Relationship Specialty Start Date End Date Belinda Ochoa PA [address] [facility] [address] [place] [phone] PCP - General 09/11/23
== END 2024-08-09 17:53 | disposition home or self-care (01) ==
LOC: HO.MRI 17:52
PROVIDERS: Visit Provider Orthopaedic Surgery
DX: M25.311 Other instability, right shoulder (principal)
CPT/HCPCS: 73221

== ENCOUNTER → 2024-08-09 17:56 | Outpatient (BNV) | payer OTHER, SELFPAY | PROVIDERS: Visit Provider Radiology Diagnostic Radiology | DX: M25.712 Osteophyte, left shoulder (principal); M89.411 Other hypertrophic osteoarthropathy, right shoulder | CPT/HCPCS: 73221 ==

== ENCOUNTER 2024-08-24 09:54 | Outpatient (AMB) | payer OTHER, SELFPAY ==
--- NOTE | 2024-08-24 09:58 | A.OFFVIS_ITS ---
Vital Signs 08/24/24 10:01 Height 5 ft 10 in Weight 242 lb BMI 34.7 Intake Visit Reasons: OV-Right Shoulder MRI Review Intake Note: George is a 49 year old male who presents with complaints of intermittent pain along the lateral aspect of his right shoulder. He describes his pain as achy in nature. He denies any weakness. He continues with his home exercise program . He has had a cortisone injection given into his left shoulder in the past which gave him fairly good relief. Allergies No Known Allergies Allergy (Verified 08/24/24 10:01) Medication List - Last Reconciled 08/24/24 by Claude Bell MD No Known Home Meds [facility] Medical History (Updated 08/24/24 @ 11:12 by Claude Bell MD) No pertinent past medical history Surgical History Hx of arthroscopy of left knee Social History (Updated 07/26/24 @ 09:50 by HAYDEN Maddox) Household Members: Family Housing: House Are you a primary healthcare facility administrator to a significant other at home: No Do you presently have visiting nurse or other home services: No Patient Tobacco Use Status: Never used Tobacco Current occupational status: employed Current occupation: [employer], rt handed Physical Exam Vital Signs: BMI result Body Mass Index 34.7 Const Other: Well-nourished well-developed very friendly male awake alert and oriented x3 in no acute distress Extrem Other: Bilateral upper extremity examination shows good capillary refill, no skin lesions noted, normal sensation light touch Right shoulder examination shows full range of motion when compared to his left shoulder, 4+ out of 5 strength with supraspinatus testing, positive impingement signs, tenderness over his acromioclavicular joint, no instability Results Reviewed Results Reviewed: MRI of the patient's right shoulder show severe acromioclavicular joint narrowing, a type 2 acromion, signal change within the supraspinatus tendon most likely due to rotator cuff tendinosis versus partial-thickness tearing Assessment & Plan Assessment & Plan (1) Impingement of right shoulder: Code(s): M25.811 - Other specified joint disorders, right shoulder Category: Medical Plan Mr. Vasquez presents with intermittent right shoulder pain due to impingement syndrome and acromioclavicular joint arthritis as well as rotator cuff tendinosis versus partial-thickness tearing. I had a lengthy discussion with the patient regarding the treatment options. At this point the patient's symptoms are tolerable to him. We will hold off on a cortisone injection. He will follow up with me on an as-needed basis should his symptoms worsen in any way. Feel free to call me at any time should questions regarding his orthopedic management arise. I spent 20 minutes in reviewing the patient's records and imaging studies, seeing the patient and documenting in the medical record. Coding Level of Care Code Est Pt Level 3 (84541) Complex EM visit Add On G2211 Diagnoses Impingement of right shoulder M25.811
[2024-08-24 10:01] VITALS: BMI 34.7
--- OUTSIDE RECORDS SUMMARY | 2024-08-24 10:28 | XMS_ITS | Clinical Summary ---
Author Organization [facility] Address [address] [place] [address] Phone Care Team Providers Care Apigee Developer Name Role Phone Belinda Ochoa Primary Care [...] Description 07/01/2024 12:05 PM EDT Anesthesia Event [facility] Endoscopy [address] [place] [address] Kayla Bedoya MD 07/01/2024 10:07 AM EDT - 07/01/2024 11:59 PM EDT Hospital Encounter [facility] Endoscopy [address] [place] [address] Zoraida William MD Dusza, Sara, [...] (Season Ended) 2024 Colorectal Cancer Screening: Colonoscopy 07/01/2029 07/01/2024 HIB Vaccines Aged Out No longer [...] Results * COLONOSCOPY Anesthesia - MAC; [facility] ENDOSCOPY (07/01/2024 12:25 PM EDT) Anatomical [...] for surveillance. Narrative 07/01/2024 12:26 PM EDT [facility] GI Patient Name: George Vasquez [...] verified by the physician, the nurse, the principal web developer ? and the vtc technician in the pre-procedure area in the [...] Procedure Code(s): ? --- Professional --- ? 80142, Colonoscopy, flexible; with removal of ? tumor(s), polyp(s), or other lesion(s) by snare ? technique Diagnosis Code(s): ? --- Professional --- ? D12.4, Benign neoplasm of descending colon ? D12.0, Benign neoplasm of cecum CPT copyright 202 [employer]. All rights reserved. The codes documented in this report are preliminary and upon molder punch review may be revised to meet current compliance requirements. Zoraida William MD 07/01/2024 12:26:26 PM This report has been signed electronically.Zoraida William MD Number of Addenda: 0 Note Initiated On: 07/01/2024 12:01 PM Scope Withdrawal Time: 0 hours 6 minutes 59 seconds Scope In: 12:11:44 PM Scope Out: 12:24:00 PM ? Endoscopy Department at [facility] - [address] [place] [address], ? [place] [address] Procedure Note Zoraida William MD - 07/01/2024 [facility] GI Patient Name: George Vasquez [...] the physician, the nurse, theanesthetist and the vtc technician in the pre-procedure area in the [...] retroflexion views. Procedure Code(s): --- Professional --- 68912, Colonoscopy, flexible; with removal of tumor(s), polyp(s), or other lesion(s) by snare technique Diagnosis Code(s): --- Professional --- D12.4, Benign neoplasm of descending colon D12.0, Benign neoplasm of cecum CPT copyright 2020 [employer]. All rights reserved. The codes documented in this report are preliminary and upon molder punch reviewmay be revised to meet current compliance requirements. Zoraida William MD 07/01/2024 12:26:26 PM This report has been signed electronically.Zoraida William MD Number of Addenda: 0 Note Initiated On: 07/01/2024 12:01 PM Scope Withdrawal Time: 0 hours 6 minutes 59 seconds Scope In: 12:11:44 PM Scope Out: 12:24:00 PM Endoscopy Department at [facility] - [address] [place] [phone] IMPRESSION: - Three 2 to 4 mm [...] Fi nal Result [facility] [address] [place] [address], from Last 3 Months Insurance [facility] Care Teams Apigee Developer Relationship Specialty Start Date End Date Belinda Ochoa PA [address] [facility] [address] [place] [phone] PCP - General 09/11/23
== END 2024-08-24 10:22 | disposition home or self-care (01) ==
LOC: HO.HOS 09:54
PROVIDERS: Visit Provider Orthopaedic Surgery
DX: M25.811 Other specified joint disorders, right shoulder (principal)
CPT/HCPCS: 99213; G2211

== ENCOUNTER → 2024-08-24 09:54 | Outpatient (BNVA) | payer OTHER, SELFPAY | PROVIDERS: Visit Provider Orthopaedic Surgery | DX: M25.811 Other specified joint disorders, right shoulder (principal) | CPT/HCPCS: 99212 ==